=== PATIENT | male | born 1980 ===

== ENCOUNTER 2024-07-07 18:32 | Outpatient (REF) | payer OTHER, SELFPAY ==
[2024-07-07 18:57] LABS: HCT 43.9 % (40.0-50.0); HGB 14.7 g/dL (13.5-17.5); MCH 29.4 pg (27.0-33.0); MCHC 33.5 % (32.0-36.0); MCV 88 fL (80-95); MPV 11.3 fL (8.0-11.0); Platelet Count 241 10^3/uL (130-400); RDW 12.1 % (11.8-14.1); WBC 4.63 10^3/uL (4.4-10.8)
[2024-07-07 19:18] LABS: ALT 18 U/L (16-63); AST 16 U/L (15-37); Albumin 4.1 g/dL (3.4-5.0); Alkaline Phosphatase 63 U/L (46-116); Anion Gap 9.7 mmol/L (3-11); BUN 11 mg/dL (7-18); Bilirubin, Total 0.4 mg/dL (0.2-1.0); CO2 26.3 mmol/L (21.0-32.0); CREATININE 0.8 mg/dL (0.70-1.30); Calculated LDL 148 mg/dL (<100); Chloride 104 mmol/L (98-107); Cholesterol 208 mg/dL (<200); Estimated GFR 111.22 (mL/min/1.73m2); Glucose 86 mg/dL (74-106); HDL Cholesterol 47 mg/dL (>or=40); Potassium 4.5 mmol/L (3.5-5.1); Sodium 140 mmol/L (136-145); TSH 0.95 uIU/mL (0.36-3.74); Total Protein 7.2 g/dL (6.4-8.2); Triglyceride 68 mg/dL (<150)
== END 2024-07-07 18:33 | disposition home or self-care (01) ==
LOC: NCHCN 18:32
PROVIDERS: Visit Provider Family Medicine
DX: E78.5 Hyperlipidemia, unspecified (principal); Z00.00 Encounter for general adult medical examination without abnormal findings
CPT/HCPCS: 80053; 80061; 85027; 84443